=== PATIENT | male | born 1985 | race Caucasian/White ===

== ENCOUNTER 2022-02-19 16:51 | Emergency (ER) | payer MEDICAID ==
[~2022-02-19] VITALS: Ht 172.7 cm; Wt 100.0 kg
--- NOTE | 2022-02-19 17:08 | NUR ---
SENIOR APPLICATIONS ANALYST AWARE OF PT - HE IS WAITING IN LAB DRAW STATION FOR ROOM TO BE CLEANED.
[2022-02-19 18:13] LABS: BASOPHILS # (AUTO) 0.1 X10'3 (0-0.2); BASOPHILS % (AUTO) 0.6 % (0-1); EOSINOPHILS # (AUTO) 0.3 X10'3 (0-0.9); EOSINOPHILS % (AUTO) 2.9 % (0-6); HEMATOCRIT 50.3 % (42.0-52.0); HEMOGLOBIN 17.3 g/dl (14.0-17.9); LYMPHOCYTES % (AUTO) 21.4 % (21-51); MEAN CORPUSCULAR HEMOGLOBIN 31.4 PG (27.0-31.0); MEAN CORPUSCULAR HGB CONC 34.3 g/dL (33.0-36.5); MEAN CORPUSCULAR VOLUME 91.6 FL (78-98); MEAN PLATELET VOLUME 7.5 FL (7.4-10.4); MONOCYTES # (AUTO) 0.6 X10'3 (0-0.9); MONOCYTES % (AUTO) 6.8 % (2-12); NEUTROPHILS # (AUTO) 6.5 X10'3 (1.8-7.7); NEUTROPHILS % (AUTO) 68.3 % (42-75); PLATELET COUNT 312 X10'3 (140-440); RED CELL DISTRIBUTION WIDTH 13.6 % (11.5-14.5); WHITE BLOOD COUNT 9.5 X10'3 (4.5-11.0)
[2022-02-19 18:27] LABS: ALANINE AMINOTRANSFERASE 94 U/L (12-78); ALBUMIN/GLOBULIN RATIO 1.1 (1.1-1.5); ALKALINE PHOSPHATASE 32 IU/L (46-116); ANION GAP 10 (8-16); ASPARTATE AMINO TRANSFERASE 40 U/L (10-37); BILIRUBIN,TOTAL 0.7 MG/DL (0.1-1.0); BLOOD UREA NITROGEN 11 MG/DL (7-18); BUN/CREATININE RATIO 10.5 (5.4-32.0); CALCIUM 9.5 MG/DL (8.5-10.1); CHLORIDE 102 MMOL/L (99-107); CREATININE 1.05 MG/DL (0.60-1.10); ETHANOL 0.106 GM/DL (0.0-0.010); GLUCOSE 102 MG/DL (70-104); POTASSIUM 3.7 MMOL/L (3.5-5.1); SODIUM 139 MMOL/L (135-145); TOTAL CARBON DIOXIDE 27.1 MMOL/L (24-32); TOTAL PROTEIN 7.7 G/DL (6.4-8.2); eGFR 79 ML/MIN
[2022-02-19 18:33] LABS: URINE AMPHETAMINE SCREEN NEGATIVE (Neg); URINE BARBITUATE SCREEN NEGATIVE (Neg); URINE BENZODIAZEPINES SCREEN NEGATIVE (Neg); URINE CANNABINOID SCREEN NEGATIVE (Neg); URINE COCAINE SCREEN NEGATIVE (Neg); URINE METHADONE SCREEN NEGATIVE (Neg); URINE OPIATE SCREEN NEGATIVE (Neg); URINE PHENCYCLIDINE SCREEN NEGATIVE (Neg)
--- NOTE | 2022-02-19 20:09 | NUR ---
Brought from ED to Overflow bed 24. Patient is awake, well oriented, quite anxious and suicidal. Plan to run out into traffic. Patient states a schizophrenia history. Patient endorces audible halolucinations, "all kinds of things." Patient states he was not taking his long acting Haldol IM as he had no money for the Rx. Patient requested IM Haldol.
[2022-02-19] MEDS ORDERED: HALO2TAB PO (20:24)
[2022-02-19] MEDS ORDERED: BUPR150T8 PO (20:24)
[2022-02-19] MEDS ORDERED: haloperidol lactate 5mg/ml inj IM ONE (20:45)
[2022-02-19] MEDS ORDERED: diphenhydrAMINE 50 mg/ml inj IM ONE (20:45)
[2022-02-19] MEDS: haloperidol 1mg tablet PO SCH (21:00)
[2022-02-19] MEDS ORDERED: BUPR-317 PO (21:01)
--- NOTE | 2022-02-19 22:00 | NUR ---
Patient sleeping. In view from nurses station. No distress.
--- NOTE | 2022-02-19 23:00 | NUR ---
Patient continues sleeping. No distress. He self repositions.
--- NOTE | 2022-02-20 00:17 | NUR ---
Jan Sosa, patients mother. [phone]
--- NOTE | 2022-02-20 02:00 | NUR ---
No distres at this time. Patient sleeping quietly.
--- NOTE | 2022-02-20 03:21 | NUR ---
Patient continues to sleep well. No distress.
--- NOTE | 2022-02-20 04:40 | NUR ---
Patient sleeping in bed. Patient self repositioned. No distress.
--- NOTE | 2022-02-20 06:03 | NUR ---
Patient sleeping, no distress noted.
--- NOTE | 2022-02-20 07:03 | NUR ---
[facility] FAXED @ [phone]
--- NOTE | 2022-02-20 07:08 | NUR ---
Patient sleeping in bed. Respirations are even and unlabored.
[2022-02-20] MEDS ORDERED: buproprion 150mg XL (24-hour) tablet PO SCH (08:00)
[2022-02-20] MEDS ORDERED: buPROPion SR 150mg tablet PO SCH (08:00)
--- NOTE | 2022-02-20 08:07 | NUR ---
NO BREAKFAST TRAY DELIVERED. FAXED DOWN FOR LATE MEAL REQUEST AND ASKED MD OHLFS FOR REG DIET ORDER.
--- NOTE | 2022-02-20 09:08 | NUR ---
EATING BREAKFAST MEAL TRAY, NO REQUESTS,.
[2022-02-20] MEDS: haloperidol 1mg tablet PO SCH (09:16)
--- NOTE | 2022-02-20 10:48 | NUR ---
[facility] here evaluating patient.
[2022-02-20 11:59] VITALS: BP 116/85
== END 2022-02-20 12:02 ==
LOC: ER 16:52
DX: R45.851 Suicidal ideations (principal); Z20.822 Contact with and (suspected) exposure to COVID-19; F17.200 Nicotine dependence, unspecified, uncomplicated
CPT/HCPCS: 36415; 80053; 80305; 80320; 84443; 85025; 87811; 96372; 99285; J1200; J1630

== ENCOUNTER 2023-07-02 18:33 | Emergency (ER) | payer MEDICAID, OTHER ==
[~2023-07-02] VITALS: Ht 177.8 cm; Wt 84.1 kg
[~2023-07-02 18:33] MED LIST: BUPR-317 PO; HALO2TAB PO
[2023-07-02 18:34] VITALS: TEMP 98.1
[2023-07-02] MEDS ORDERED: LORazepam 0.5 MG tablet PO PRN (19:55)
[2023-07-02] MEDS ORDERED: LidoCAINE 2% Topical Jelly 11mL syringe (UROJET) TOP ONE (20:05)
[2023-07-02 20:08] LABS: BASOPHILS % (AUTO) 0.4 % (0-1); EOSINOPHILS # (AUTO) 0.2 X10'3 (0-0.9); EOSINOPHILS % (AUTO) 2.3 % (0-6); HEMATOCRIT 49.1 % (42.0-52.0); LYMPHOCYTES # (AUTO) 1.7 X10'3 (1.1-4.8); LYMPHOCYTES % (AUTO) 19.2 % (21-51); MEAN CORPUSCULAR HEMOGLOBIN 32.6 PG (27.0-31.0); MEAN CORPUSCULAR HGB CONC 34.7 g/dL (33.0-36.5); MONOCYTES # (AUTO) 0.5 X10'3 (0-0.9); MONOCYTES % (AUTO) 5.2 % (2-12); NEUTROPHILS # (AUTO) 6.3 X10'3 (1.8-7.7); NEUTROPHILS % (AUTO) 72.9 % (42-75); PLATELET COUNT 342 X10'3 (140-440); RED BLOOD COUNT 5.22 X10'6 (4.70-6.10); RED CELL DISTRIBUTION WIDTH 13.7 % (11.5-14.5); WHITE BLOOD COUNT 8.7 X10'3 (4.5-11.0)
[2023-07-02 20:31] LABS: ALANINE AMINOTRANSFERASE 73 U/L (12-78); ALBUMIN/GLOBULIN RATIO 1.2 (1.1-1.5); ALKALINE PHOSPHATASE 20 IU/L (46-116); ANION GAP 15 (8-16); ASPARTATE AMINO TRANSFERASE 71 U/L (10-37); BILIRUBIN,TOTAL 2.5 MG/DL (0.1-1.0); BLOOD UREA NITROGEN 15 MG/DL (7-18); BUN/CREATININE RATIO 17.6 (10.0-20.0); CALCIUM 8.7 MG/DL (8.5-10.1); CHLORIDE 100 MMOL/L (99-107); CREATININE 0.85 MG/DL (0.60-1.10); GLUCOSE 98 MG/DL (70-104); POTASSIUM 3.3 MMOL/L (3.5-5.1); SODIUM 140 MMOL/L (135-145); TOTAL CARBON DIOXIDE 25.2 MMOL/L (24-32); TOTAL PROTEIN 7.3 G/DL (6.4-8.2); eCRCL 122 ML/MIN; eGFR > 90 ML/MIN
[2023-07-02 20:36] LABS: ACETAMINOPHEN < 2.0 UG/ML (10-30); ETHANOL 336 MG/DL (<10)
[2023-07-02 22:27] VITALS: BP 122/82; PULSE 82; RESP 18; O2SAT 98
== END 2023-07-02 22:31 | disposition home or self-care (01) ==
LOC: ER 18:33
DX: F10.129 Alcohol abuse with intoxication, unspecified (principal); Z79.899 Other long term (current) drug therapy; Y90.8 Blood alcohol level of 240 mg/100 ml or more
CPT/HCPCS: 36415; 70450; 80053; 80320; 80329; 85025; 99284

== ENCOUNTER 2023-07-16 02:13 | Emergency (ER) | payer SELFPAY ==
[~2023-07-16] VITALS: Ht 172.7 cm; Wt 77.3 kg
[2023-07-16 02:41] VITALS: BP 157/97; PULSE 110; RESP 20; TEMP 98.5; O2SAT 98
== END 2023-07-16 05:11 | disposition left against medical advice (07) ==
LOC: ER 02:14
DX: T22.00XA Burn of unspecified degree of shoulder and upper limb, except wrist and hand, unspecified site, initial encounter (principal); Z53.21 Procedure and treatment not carried out due to patient leaving prior to being seen by health care provider; X08.8XXA Exposure to other specified smoke, fire and flames, initial encounter; Y93.89 Activity, other specified; Y92.89 Other specified places as the place of occurrence of the external cause; Y99.8 Other external cause status

== ENCOUNTER 2023-12-14 17:25 | Emergency (ER) | payer OTHER ==
[~2023-12-14] VITALS: Ht 177.8 cm; Wt 78.9 kg
[~2023-12-14 17:25] MED LIST changes: -BUPR-317 PO; +BUPR-561 PO
[2023-12-14 17:32] VITALS: TEMP 98.6
[2023-12-14 18:13] LABS: BASOPHILS # (AUTO) 0.1 X10'3 (0-0.2); BASOPHILS % (AUTO) 0.6 % (0-1); EOSINOPHILS # (AUTO) 0.4 X10'3 (0-0.9); EOSINOPHILS % (AUTO) 4.4 % (0-6); HEMOGLOBIN 14.9 g/dl (14.0-17.9); LYMPHOCYTES # (AUTO) 1.9 X10'3 (1.1-4.8); LYMPHOCYTES % (AUTO) 21.8 % (21-51); MEAN CORPUSCULAR HEMOGLOBIN 30.7 PG (27.0-31.0); MEAN CORPUSCULAR HGB CONC 33.8 g/dL (33.0-36.5); MEAN CORPUSCULAR VOLUME 90.9 FL (78-98); MEAN PLATELET VOLUME 7.7 FL (7.4-10.4); MONOCYTES # (AUTO) 0.4 X10'3 (0-0.9); MONOCYTES % (AUTO) 4.1 % (2-12); NEUTROPHILS % (AUTO) 69.1 % (42-75); PLATELET COUNT 292 X10'3 (140-440); RED BLOOD COUNT 4.85 X10'6 (4.70-6.10); RED CELL DISTRIBUTION WIDTH 13.2 % (11.5-14.5); WHITE BLOOD COUNT 8.6 X10'3 (4.5-11.0)
[2023-12-14 18:24] LABS: ALANINE AMINOTRANSFERASE 46 U/L (12-78); ALBUMIN 3.8 G/DL (3.4-5.0); ALBUMIN/GLOBULIN RATIO 1.2 (1.1-1.5); ALKALINE PHOSPHATASE 22 IU/L (46-116); ANION GAP 8 (8-16); ASPARTATE AMINO TRANSFERASE 31 U/L (10-37); BILIRUBIN,TOTAL 0.9 MG/DL (0.1-1.0); BLOOD UREA NITROGEN 10 MG/DL (7-18); BUN/CREATININE RATIO 14.9 (10.0-20.0); CALCIUM 8.5 MG/DL (8.5-10.1); CHLORIDE 105 MMOL/L (99-107); CREATININE 0.67 MG/DL (0.60-1.10); ETHANOL 292 MG/DL (<10); GLUCOSE 116 MG/DL (70-104); POTASSIUM 3.8 MMOL/L (3.5-5.1); SODIUM 143 MMOL/L (135-145); TOTAL CARBON DIOXIDE 30.5 MMOL/L (24-32); TOTAL PROTEIN 7.1 G/DL (6.4-8.2); eCRCL 153 ML/MIN; eGFR > 90 ML/MIN
[2023-12-14] MEDS ORDERED: NORMAL SALINE IVB ONE (20:00)
[2023-12-14] MEDS: normal saline 1000ml 1,000 ML IV ONE ×2 (20:21)
[2023-12-14 23:55] VITALS: BP 109/69; PULSE 80; RESP 16; O2SAT 96
== END 2023-12-15 00:26 | disposition home or self-care (01) ==
LOC: ER 17:29
DX: F10.129 Alcohol abuse with intoxication, unspecified (principal); Z79.899 Other long term (current) drug therapy; Y90.8 Blood alcohol level of 240 mg/100 ml or more
CPT/HCPCS: 36415; 80053; 80320; 85025; 93005; 96360; 99284; J7030